=== PATIENT | female | born 1950 | race Caucasian/White ===

== ENCOUNTER → 2017-04-23 | Outpatient (CLI) | payer MEDICARE, OTHER ==
[~2017-04-23] MED LIST: ACTOS15 MG PO; ASP81TEC PO; ASPI-892 PO; CARV3.122 PO; CEFU250T11 PO; CLIN300C3 PO; CYAN10007 PO; ETD400T PO; FLC1T PO; HCT25T PO; LACT1TAB6 PO; LEVO125T PO; LSNP10T PO; LVT.025T PO; MMT17NA NS; MTF500T; MTF500T PO; OMG1KC PO; OXYC-12 PO; PGLT30T; PRV20T; SIMV20TA3 PO; SMV20T PO
--- NOTE | 2017-04-23 13:03 | Diagnostic Imaging Report ---
Bilateral screening mammogram 2D views with tomosynthesis. The current study was also evaluated with a Computer Aided Detection (CAD) system. INDICATION: Screening. No current complaints stated on the questionnaire. COMPARISON: 02/07/16 FINDINGS: The breasts are composed of scattered fibroglandular densities. Benign-appearing calcifications are seen. Stable subcentimeter circumscribed nodular densities are noted. Allowing for technique and positional differences, no suspicious change is seen. IMPRESSION: No significant change. ACR BI-RADS Category 2: Benign findings. Result letter will be mailed to the patient. Note: At least 10% of breast cancer is not imaged by mammography. Dictated by: Dictated on workstation # [id number]
== END ==
LOC: RAD 07:10
PROVIDERS: ATTEND Nurse Practitioner Family
DX: Z12.31 Encounter for screening mammogram for malignant neoplasm of breast (principal)

== ENCOUNTER 2017-11-15 05:40 | Outpatient (CLI) | payer MEDICARE, OTHER ==
[~2017-11-15] VITALS: Ht 157.5 cm; Wt 99.8 kg
[2017-11-15] MEDS ORDERED: CYAN1TAB26 PO (10:06)
[2017-11-15] MEDS ORDERED: CHOL10007 PO (10:06)
[2017-11-15] MEDS ORDERED: LEVO25TA5 PO (10:06)
[2017-11-15] MEDS ORDERED: LOSA50TA36 PO (10:06)
[2017-11-15] MEDS ORDERED: CARV25TA PO (10:06)
[2017-11-15] MEDS ORDERED: DULA1.5P2 SQ (10:06)
[2017-11-15] MEDS ORDERED: ASPI-999 PO (10:06)
== END 2017-11-15 10:08 ==
LOC: PREOP 05:40
PROVIDERS: ATTEND Surgery
DX: Z01.818 Encounter for other preprocedural examination (principal)

== ENCOUNTER 2017-11-22 06:44 | Day surgery (SDC) | payer MEDICARE, OTHER ==
[~2017-11-22] VITALS: Ht 157.5 cm; Wt 99.8 kg
[~2017-11-22 06:44] MED LIST changes: +ASPI-999 PO; +CARV25TA PO; +CHOL10007 PO; +CYAN1TAB26 PO; +DULA1.5P2 SQ; +LEVO25TA5 PO; +LOSA50TA36 PO
[2017-11-22] MEDS ORDERED: NS IV 500 ML 500 ML IV PRN (07:10)
[2017-11-22] MEDS ORDERED: NS IV 500 ML 500 ML ONE (07:15)
[2017-11-22 07:28] VITALS: BP 118/66
[2017-11-22] MEDS ORDERED: MIDAZOLAM 2 MG/2 ML (VERSED) VIAL ONE ×4 (07:59→08:00)
[2017-11-22] MEDS ORDERED: fentaNYL INJECTION 100 MCG/2 ML AMP ONE ×2 (07:59)
[2017-11-22] MEDS: fentaNYL INJECTION 100 MCG/2 ML AMP IVP PRN ×2 (08:05→08:09)
[2017-11-22] MEDS: MIDAZOLAM 2 MG/2 ML (VERSED) VIAL IVP PRN ×2 (08:08→08:11)
--- NOTE | 2017-11-22 08:34 | History & Physicial ---
History of Present Illness History of Present Illness Reason for visit/HPI To undergo screening colonoscopy. Denies any relevant family history Date of Admission 11/22/17 Date Seen by Provider: Nov 22, 2017 Time Seen by Provider: 07:55 I consulted on this patient on 11/22/17 08:31 Attending Physician Aditya Sauer MD Admitting Physician Vanessa Crockett MD Consult Allergies and Home Medications Allergies Coded Allergies: Penicillins (Verified Allergy, Unknown, 06/14/07) levofloxacin (Verified Allergy, Unknown, 06/14/07) Home Medications Aspirin 81 Mg Tab.chew, 81 MG PO DAILY, (Reported) Carvedilol 25 Mg Tablet, 25 MG PO BID, (Reported) Cholecalciferol (Vitamin D3) 1,000 Unit Capsule, 1,000 UNIT PO DAILY, (Reported) Cyanocobalamin/Folic Acid 1 Each Tablet, 1 EACH PO DAILY, (Reported) Dulaglutide 1.5 Mg/0.5 Ml Pen.injctr, 1.5 MG SQ WEEK, (Reported) Levothyroxine Sodium 25 Mcg Tablet, 25 MCG PO DAILY, (Reported) Losartan Potassium 50 Mg Tablet, 50 MG PO DAILY, (Reported) Patient Home Medication List Home Medication List Reviewed: Yes Past Fjymlnj-Wryspg-Ixscso Hx Patient Social History Marrital Status: single Employed/Student: retired Alcohol Use: Denies Use Recreational Drug Use: No Smoking Status: Former Smoker Former Smoker, Quit: Nov 15, 1976 Recent Foreign Travel: No Contact w/other who traveled: No Recent Hopitalizations: No Seasonal Allergies Seasonal Allergies: Yes Surgeries Adenoidectomy, Appendectomy, Gallbladder, Hysterectomy, Tonsillectomy Respiratory No Cardiovascular Yes Hypertension Reproductive System Hx Reproductive Disorders: No Gastrointestinal No Musculoskeletal No Endocrine History of Endocrine Disorders: No HEENT History of HEENT Disorders: No Cancer No Integumentary History of Skin or Integumenta: No Reviewed Nursing Assessment Reviewed/Agree w Nursing PMH: No Constitutional: no symptoms reported EENTM: no symptoms reported Respiratory: no symptoms reported Cardiovascular: no symptoms reported Gastrointestinal: no symptoms reported Genitourinary: no symptoms reported Musculoskeletal: no symptoms reported Skin: no symptoms reported Psychiatric/Neurological: No Symptoms Reported Physical Exam Vital Signs Vital Signs - First Documented 11/22/17 07:28 Temp 97.6 Pulse 74 Resp 18 B/P (MAP) 118/66 (83) Pulse Ox 95 O2 Delivery Room Air Capillary Refill : Height, Weight, BMI Height: 5', 2.00" Weight: 220lbs 0.0oz, [id number] Method: ,40.2BMI General Appearance: No Apparent Distress Neck: Normal Inspection Respiratory: Lungs Clear Cardiovascular: Regular Rate, Rhythm Gastrointestinal: Non Tender, Soft Rectal: Deferred Extremity: Normal Inspection Neurologic/Psychiatric: Alert, Oriented x3 Skin: Warm/Dry Assessment/Plan Assessment and Plan Lady here to undergo screening colonoscopy. Details of the procedure, iatrogenic complications of perforation, post polypectomy bleeding etc. discussed thoroughly. Admission Diagnosis Admission Status: Other (Outpt Proc) ADITYA SAUER MD Nov 22, 2017 8:34 am
--- NOTE | 2017-11-22 08:36 | Endo Procedure Record ---
Endo Procedure Report Date of Procedure Last Colonoscopy: Yes Nov 22, 2017 Surgeon (s) ADITYA BRENNAN MD Post Procedure/Op Diagnosis Sigmoid diverticulosis Procedure Performed Colonoscopy to cecum Description of Procedure Anesthesia Type: Conscious Sedation Specimen(s) collected/removed None Description of the Procedure Indication for the procedure: This lady came in for screening colonoscopy. She denied any family history of polyps or colon cancer. Informed consent was obtained after reviewing the procedure in detail. Description of procedure: She was placed in left lateral rectus position and her vital signs were monitored. Conscious sedation was achieved using Versed and fentanyl. Digital rectal examination was unremarkable. The colonoscope was then introduced in the rectum and advanced all the way up to the cecum. The scope was then withdrawn slowly and the mucosa examined in a systematic fashion. Findings: Sigmoid diverticulosis. She tolerated the procedure well and was taken to the nursing area in a stable condition. Impression: Screening colonoscopy. No polyps. No family history. Recommend screening examination in 10 years Copy Copies To 1: DES ALEJANDRA MD, XAVIER M MD Nov 22, 2017 8:36 am
--- NOTE | 2017-11-22 08:38 | Discharge Inst-Simple/Standard ---
Discharge Inst-Standard Discharge Medications New, Converted or Re-Newed RX: Other Patient Instructions/Follow Up Plan of Care/Instructions/FU: Repeat colonoscopy in 10 years Activity as Tolerated: Yes Discharge Diet: No Restrictions ADITYA BRENNAN MD Nov 22, 2017 8:38 am
--- NOTE | 2017-11-22 08:43 | Conscious Sedation/ASA ---
Conscious Sedation Pre-Proced Time Reviewed: 07:52 ASA Class: 2 Airway Mallampati Classification: (chevak appropriate class) I. II. III, IV Lungs Heart ASA score ASA 1: a normal healthy patient ASA 2: a patient with a mild systemic disease (mid diabetes, controlled hypertension, obesity ASA 3: a patient with a severe systemic disease that limits activity (angina , COPD, prior Myocardial infarction) ASA 4: a patient with an incapacitating disease that is a constant threat to life (CHF, renal failure) ASA 5: a moribund patient not expected to survive 24 hrs. (ruptured aneurysm) ASA 6: a declared brain patient whose organs are being harvested. For emergent operations, add the letter E after the classification Grade 1 Sedation Plan: Discussed options with patient/fam Note The patient is an appropriate candidate to undergo the planned procedure, sedation, and anesthesia. The patient immediately re-assessed prior to indication. ADITYA BRENNAN MD Nov 22, 2017 8:43 am
[2017-11-22 09:00] VITALS: BP 128/71
[2017-11-22 09:38] VITALS: BP 128/71
[2017-11-22 09:53] VITALS: BP 128/71
== END 2017-11-22 10:00 | disposition home or self-care (01) ==
LOC: ENDO 06:44
PROVIDERS: ATTEND Surgery
DX: Z12.11 Encounter for screening for malignant neoplasm of colon (principal); I10 Essential (primary) hypertension; Z79.82 Long term (current) use of aspirin

== ENCOUNTER → 2018-04-28 | Outpatient (CLI) | payer MEDICARE, OTHER ==
[~2018-04-28] MED LIST changes: -LOSA50TA36 PO; +LOSA50TA7 PO
--- NOTE | 2018-04-29 08:09 | Diagnostic Imaging Report ---
Indication: Screening Comparison made with prior examination of 04/23/2017 back through 06/09/2011. Findings: There are scattered fibroglandular densities bilaterally. There are a few benign type calcifications. There is unchanged nodular density in the upper outer aspect of the left breast. There is no new dominant mass, spiculated lesion or suspicious calcification identified. Impression: Category 2 benign. ACR BI-RADS Category 2: Benign findings. Result letter will be mailed to the patient. Note: At least 10% of breast cancer is not imaged by mammography. Dictated by: Dictated on workstation # [id number]
== END ==
LOC: RAD 13:10
PROVIDERS: ATTEND Nurse Practitioner Family
DX: Z12.31 Encounter for screening mammogram for malignant neoplasm of breast (principal)
CPT/HCPCS: 77067

== ENCOUNTER → 2019-05-05 | Outpatient (CLI) | payer MEDICARE, OTHER ==
[~2019-05-05] MED LIST changes: +LOSA50TA63 PO; -LOSA50TA7 PO
--- NOTE | 2019-05-05 11:16 | Diagnostic Imaging Report ---
INDICATION: Routine screening. Comparison is made with prior mammograms from 04/28/2018 and 04/23/2017. 2-D and 3-D bilateral screening mammography was performed. The current study was also evaluated with a Computer Aided Detection (CAD) system. 3-D tomosynthesis was also performed and reviewed. FINDINGS: Scattered fibroglandular densities are identified bilaterally. The overall parenchymal pattern is stable. Benign nodular density in the upper-outer left breast is stable. There are benign calcifications. No spiculated mass or malignant-appearing microcalcifications are seen. Axillae are unremarkable. IMPRESSION: No mammographic features suspicious for malignancy are identified. ACR BI-RADS Category 2: Benign findings. Result letter will be mailed to the patient. Note: At least 10% of breast cancer is not imaged by mammography. Dictated by: Dictated on workstation # [id number]
== END ==
LOC: RAD 07:15
PROVIDERS: ATTEND Nurse Practitioner Family
DX: Z12.31 Encounter for screening mammogram for malignant neoplasm of breast (principal)
CPT/HCPCS: 77067

== ENCOUNTER → 2020-05-06 | Outpatient (CLI) | payer MEDICARE, OTHER ==
--- NOTE | 2020-05-06 13:20 | Diagnostic Imaging Report ---
INDICATION: Routine screening. Comparison is made with prior mammogram from 05/05/2019 and 04/28/2018. 2-D and 3-D bilateral screening mammography was performed with CAD. Scattered fibroglandular densities are identified bilaterally. Nodular densities in both breasts appears stable. No spiculated mass or malignant appearing microcalcifications are seen. Axillae are unremarkable. IMPRESSION: BI-RADS Category 2 No mammographic features suspicious for malignancy are identified. ACR BI-RADS Category 2: Benign findings. Result letter will be mailed to the patient. Note: At least 10% of breast cancer is not imaged by mammography. Dictated by: Dictated on workstation # [id number]
== END ==
LOC: RAD 09:49
PROVIDERS: ATTEND Family Medicine
DX: Z12.31 Encounter for screening mammogram for malignant neoplasm of breast (principal)
CPT/HCPCS: 77063; 77067

== ENCOUNTER → 2021-05-07 | Outpatient (CLI) | payer MEDICARE ==
--- NOTE | 2021-05-07 11:30 | Diagnostic Imaging Report ---
Indication: Routine screening. Comparison is made with prior mammogram from 05/06/2020 and 05/05/2019. 2-D and 3-D bilateral screening mammography was performed with CAD. Scattered fibroglandular densities are identified bilaterally. Benign nodular densities in both breasts appears stable. No spiculated mass or malignant-appearing microcalcifications are seen. Axillae are unremarkable. IMPRESSION: BI-RADS Category 2 No mammographic features suspicious for malignancy are identified. ACR BI-RADS Category 2: Benign findings. Result letter will be mailed to the patient. Note: At least 10% of breast cancer is not imaged by mammography. Dictated by: Dictated on workstation # [id number]
== END ==
LOC: RAD 10:00
PROVIDERS: ATTEND Family Medicine
DX: Z12.31 Encounter for screening mammogram for malignant neoplasm of breast (principal)
CPT/HCPCS: 77063; 77067

== ENCOUNTER → 2021-09-23 | Outpatient (CLI) | payer MEDICARE, OTHER ==
[~2021-09-23] MED LIST changes: +CATHETER FLUSH 10 ML SYR IVP PRN; +REGADENOSON 0.4 MG/5 ML SYR (LEXISCAN) IV ONE
[2021-09-23 09:16] VITALS: BP 183/109
--- NOTE | 2021-09-23 21:20 | STRESS TEST ---
DATE OF SERVICE: 09/23/2021 RESTING AND POST REGADENOSON TECHNETIUM-99M TETROFOSMIN SPECT CT IMAGING ORDERING PHYSICIAN: Dr. Bryant. PRIMARY PHYSICIAN: Dr. Crockett. CLINICAL DIAGNOSIS: Shortness of breath. Baseline images were carried out after injection of 10.7 mCi of technetium-99m Tetrofosmin. This was followed by 0.4 mg regadenoson and 31.7 mCi of technetium-99m Tetrofosmin for stress imaging. The electrocardiogram showed sinus rhythm at baseline. There was subtle nonspecific ST abnormality at baseline. It did not change significantly with the regadenoson infusion. The patient noted some nausea following regadenoson infusion, which resolved in a few minutes. Review of images at rest and following stress does not indicate any significant perfusion defects consistent with significant myocardial ischemia or infarction. Gated images show normal global left ventricular systolic function with normal regional wall motion. Left ventricular ejection fraction is calculated to be 79%. CONCLUSIONS: 1. No evidence of any significant myocardial ischemia or infarction on this study. 2. Normal regional wall motion. 3. Normal global left ventricular systolic function with a calculated ejection fraction 79%. Job ID: [id number] DocumentID: [id number] Dictated Date: 09/23/2021 17:43:58 Flattening Press Operator Date: 09/23/2021 21:19:46 Dictated By: MAYNOR BRYANT MD, MA, FACP, FACC,
== END ==
LOC: CARD 08:00
PROVIDERS: ATTEND Internal Medicine Cardiovascular Disease
DX: R06.02 Shortness of breath (principal)
CPT/HCPCS: 78452; 93017; A9502

== ENCOUNTER → 2022-05-08 | Outpatient (CLI) | payer MEDICARE, OTHER ==
[~2022-05-08] MED LIST changes: -CATHETER FLUSH 10 ML SYR IVP PRN; -REGADENOSON 0.4 MG/5 ML SYR (LEXISCAN) IV ONE
--- NOTE | 2022-05-08 13:36 | Diagnostic Imaging Report ---
INDICATION: Routine screening. Comparison is made with prior mammogram from 05/07/2021 and 05/06/2020. 2-D and 3-D bilateral screening mammography was performed with CAD. Scattered fibroglandular densities are identified bilaterally. Bilateral nodular densities are again noted. No spiculated mass or malignant-appearing microcalcifications are seen. Axillae are unremarkable. IMPRESSION: No mammographic features suspicious for malignancy are identified. ACR BI-RADS Category 2: Benign findings. Result letter will be mailed to the patient. Note: At least 10% of breast cancer is not imaged by mammography. BI-RADS Category 2 Dictated by: Dictated on workstation # [id number]
== END ==
LOC: RAD 10:59
PROVIDERS: ATTEND Family Medicine
DX: Z12.31 Encounter for screening mammogram for malignant neoplasm of breast (principal)
CPT/HCPCS: 77063; 77067